=== PATIENT | female | born 1955 | race Caucasian/White ===

== ENCOUNTER → 2017-02-06 | Outpatient (CLI) | payer BC | END | disposition home or self-care (01) | LOC: CDC 10:20 | DX: J32.9 Chronic sinusitis, unspecified (principal); R94.31 Abnormal electrocardiogram [ECG] [EKG] | CPT/HCPCS: 93000 ==

== ENCOUNTER → 2017-03-14 | Outpatient (CLI) | payer BC ==
[~2017-03-14] VITALS: Ht 157.5 cm; Wt 86.2 kg
[~2017-03-14] MED LIST: ALLEGRA ALLERGY60 MG PO; COMBIGAN O20 DROP/5 BOTH EYES; FLONASE16 G1 BOTH NARES; OMEPRAZOLE40 M1 PO
== END | disposition home or self-care (01) ==
LOC: OPR 08:33 → EDSTATUS 09:00 → OPR 09:00
PROC: 0KB Muscles, Excision (ICD-10-PCS; principal; 2017-03-14)
DX: C43.72 Malignant melanoma of left lower limb, including hip (principal); K21.9 Gastro-esophageal reflux disease without esophagitis
CPT/HCPCS: 77012; 88305; 88341 TC; 88342 TC; J3010

== ENCOUNTER → 2017-04-19 | Outpatient (CLI) | payer BC | END | disposition home or self-care (01) | LOC: CDC 11:02 | DX: Z01.810 Encounter for preprocedural cardiovascular examination (principal); R00.1 Bradycardia, unspecified; I45.10 Unspecified right bundle-branch block; R94.31 Abnormal electrocardiogram [ECG] [EKG] | CPT/HCPCS: 93000 ==

== ENCOUNTER → 2018-01-07 | Outpatient (CLI) | payer BC ==
[~2018-01-07] MED LIST changes: +ADVIL200 MG PO
== END | disposition home or self-care (01) ==
LOC: RAD 13:48
DX: G93.89 Other specified disorders of brain (principal); Z85.820 Personal history of malignant melanoma of skin; Z85.118 Personal history of other malignant neoplasm of bronchus and lung
CPT/HCPCS: 70553

== ENCOUNTER 2018-03-07 14:50 | Observation (INO) | payer BC ==
[~2018-03-07] VITALS: Ht 157.5 cm; Wt 82.6 kg
[2018-03-07 15:14] VITALS: BP 188/86
[2018-03-07 17:03] LABS: HEMATOCRIT 47.6 % (36.0-46.0); HEMOGLOBIN 15.4 G/DL (11.9-15.5); MCH 28.7 PG (29.0-34.0); MCHC 32.4 G/DL (30.0-36.0); MCV 88.8 FL (83-99); PLATELET COUNT 323 K/uL (156-360); RBC DIS.WIDTH-CV 13.8 % (11.8-14.6); RBC DIS.WIDTH-SD 44.7 % (39-53); RED BLOOD COUNT 5.36 M/uL (3.80-5.20); WHITE BLOOD COUNT 10.4 K/uL (4.1-10.2)
[2018-03-07 17:25] LABS: HDL CHOLESTEROL 37 MG/DL (Desirable>=50); LDL CHOLESTEROL 213 mg/dL (Desirable<100); NON-HDL CHOLESTEROL 244 mg/dL (Desirable<160); TOTAL CHOLESTEROL 281 mg/dL (Desirable<200); TRIGLYCERIDES 153 MG/DL (Normal: <150)
[2018-03-07 18:02] VITALS: BP 179/95
[2018-03-07 18:55] VITALS: BP 178/96
[2018-03-08 00:29] VITALS: BP 120/65
[2018-03-08 03:48] VITALS: BP 131/67
[2018-03-08 07:29] VITALS: BP 126/82
[2018-03-08] MEDS ORDERED: NIFEDIPINE20 MG PO (09:48)
[2018-03-08] MEDS ORDERED: ASPIR-LOW81 MG PO (09:48)
[2018-03-08] MEDS ORDERED: ATORVASTATIN CA40 MG PO (09:48)
[2018-03-08 11:25] VITALS: BP 129/69
[2018-03-09 09:15] LABS: HEMOGLOBIN A1c (GLYCOHEMOGLOB) 5.8 % (Below 5.7)
== END 2018-03-08 15:12 | disposition home or self-care (01) ==
LOC: 5SOUTH 14:50 → 5EAST 14:50 → ENRESERV 17:26 → 5SOUTH 17:52
PROVIDERS: Hospitalist
PROC: B246ZZZ Ultrasonography of Right and Left Heart (ICD-10-PCS; principal; 2018-03-07)
DX: I63.8 Other cerebral infarction (principal); I10 Essential (primary) hypertension; Z85.820 Personal history of malignant melanoma of skin; K21.9 Gastro-esophageal reflux disease without esophagitis; H40.9 Unspecified glaucoma; Z90.710 Acquired absence of both cervix and uterus; Z87.891 Personal history of nicotine dependence; Z88.0 Allergy status to penicillin; E04.1 Nontoxic single thyroid nodule
CPT/HCPCS: 36415; 80053; 80061; 83036; 84443; 85025; 85027; 87070; 87102; 92523 GN; 93306; 93880; G0378; J0360